=== PATIENT | male | born 1995 | race Native Hawaiian/Other Pacific Islander ===

== ENCOUNTER 2016-07-16 19:59 | Emergency (ER) | payer BC ==
[~2016-07-16] VITALS: Ht 185.4 cm; Wt 109.0 kg
[2016-07-16 20:03] VITALS: TEMP 37.3; Ht 185.4 cm; Wt 109.0 kg
[2016-07-16] MEDS ORDERED: STR/80 PO (20:49)
--- NOTE | 2016-07-16 21:07 | DIAGNOSTIC IMAGING REPORT ---
LUMBAR SPINE 5 VIEWS CLINICAL HISTORY: Low back pain. FINDINGS: 5 views of the lumbar spine are obtained. No prior studies are available for comparison at the time of dictation. The skeletal structures are well mineralized. There is no radiographic evidence of fracture or malalignment. Vertebral body height and alignment are maintained. The transverse and spinous processes are intact. There is no evidence of spondylolysis. The intervertebral disc spaces are well-maintained. The visualized bony pelvis appears intact. There is a nonobstructed abdominal bowel gas pattern. There is moderate colonic fecal retention. IMPRESSION: Unremarkable radiographic evaluation of the lumbosacral spine. Electronically signed by: Aubrey Bull M.D. 07/16/2016 9:05 PM Dictated Date/Time: 07/16/2016 9:04 PM
[2016-07-16] MEDS ORDERED: CETI10TA84 PO (21:13)
[2016-07-16] MEDS ORDERED: TRAM-10 PO (21:31)
[2016-07-16] MEDS ORDERED: CYCL10TA6 PO (21:31)
[2016-07-16 21:38] VITALS: BP 134/53; PULSE 75; O2SAT 98
[2016-07-16] MEDS ORDERED: FLEXERIL HOME PACK 10 MG VIAL PO ONE (21:45)
[2016-07-16] MEDS ORDERED: TRAMADOL HCL 50 MG HOME PACK PO ONE (21:45)
--- NOTE | 2016-07-17 01:43 | EMERGENCY ROOM VISIT NOTE ---
ED Visit Note First contact with patient: 20:09 Chief Complaint: Back pain. History of Present Illness: Mr. Galeas is a 20-year-old male who ambulates into the ED accompanied by a male friend complaining of left-sided lumbar back pain. Patient reports approximately one hour he was wrestling at [employer] in a club sport. He reports she had a bear hug-like trimmer climber on his opponent he was twisting with his upper body to bring the opponent to the mat. And felt a popping sensation in the left side of the lumbar back. He reports since that time his pain has been constant. He describes it as a sharp and throbbing sensation. It is nonradiating. He rates his discomfort 9/10 with movement. His pain worsens with all movements of the back. He has not identified any alleviating factors related to the pain. He has not taken any medications for pain prior to arrival at the hospital. He denies any associated symptoms including abdominal pain, nausea, vomiting, diarrhea, constipation, rectal bleeding, black /tarry stools, urinary symptoms, hematuria, rectal/genital paresthesias, bowel and bladder dysfunction, lower extremity weakness/numbness/tingling. Additionally he denies any previous significant injuries or surgeries. Review of Systems: As noted above in history of present illness. 8 body systems were reviewed and found to be negative as noted above. Past Medical History: Asthma, status post bariatric surgery. Current Medications: Strattera, Zyrtec. Allergies to Medications: Patient denies. 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 Physical Examination: Vital Signs: Date Time Temp Pulse Resp B/P Pulse Ox O2 Delivery O2 Flow Rate FiO2 07/16/16 21:38 75 16 134/53 98 Room Air 07/16/16 20:03 37.3 102 18 142/57 97 Room Air GENERAL: 20-year-old male in mild to moderate distress due to pain, nontoxic- appearing, afebrile and hemodynamically stable. NEUROLOGICAL: Awake, alert and oriented to person, place and time. Answering questions appropriately and following commands. Normal gait. Good hand eye coordination. No focal motor sensory deficits. SKIN: Warm, dry and pink. No soft tissue eruptions or trauma noted. HEENT: Atraumatic and normocephalic. BACK: No tenderness over the bony cervical, thoracic and lumbar spine. No step -offs, swelling or ecchymosis over the bony spine. Moderate tenderness approximately 4-5 cm left lateral to the L3-L4 area in the paraspinous muscles. Mild decreased range of motion in all movements due to pain. Negative straight leg raise test. No CVA tenderness. THORAX: Lungs sounds are clear to auscultation and equal bilaterally with symmetrical chest wall. ABDOMEN: Obese, soft and nontender. Positive bowel sounds in all quadrants. No guarding, rigidity or organomegaly. EXTREMITIES: Moves all extremities well on command and with purpose. All distal neurovascular statuses are intact and equal bilaterally. 5/5 muscle strength in hip flexion, extension, abduction and abduction, knee flexion and extension, ankle plantar flexion and dorsiflexion and flexion and extension of the great toes. 2+ patellar and Achilles deep tendon reflexes intact and equal bilaterally. He was able to distinguish light sensations through all dermatomes of the lower legs. ED Course: Patient is assessed as noted above. Lumbar Spine X-Rays: Were read by myself and the radiologist and there is no evidence of fracture or malalignment. Vertebral height and alignment are maintained. Radiologist did note moderate colonic fecal retention. The patient's request I did speak to his older sister who interpreted for his parents. They did request an MRI be performed at this time and I indicated he had no neurological deficits and that the MRI machine was reserved at this time for acute possible surgical emergencies. Patient was educated about tonight's findings and instructed on his treatment plan; he verbalized understanding and agreement with this plan. Clinical Impression: Acute left-sided lumbar back pain. Decision-Making: Initially my differential diagnosis I considered disc herniation, muscle strain, muscle spasm, bony fracture and other causes. Disposition: Patient discharged home in stable condition prior to arrival at the hospital; prior to departure he was reassessed and appeared to be feeling better but continued to rate his discomfort 9/10. Plan: Patient was prescribed Ultram 50 mg every 6 hours as needed for pain and encouraged to alternate with acetaminophen every 3 hours pain. Patient was prescribed Flexeril 10 mg every 8 hours as needed for/muscle spasm. Patient was encouraged use ice on areas of pain. Patient was encouraged to avoid wrestling until pain free. Patient was encouraged to follow-up at [facility] for recheck in 1-3 days and possible referral to specialist or MRI. Patient was encouraged return ED for worsening pain, numbness/tingling in the rectal or genital areas, difficulty controlling bowel and bladder functions, lower extremity weakness/numbness/tingling or any new/concerning symptoms.
== END 2016-07-16 21:42 | disposition home or self-care (01) ==
LOC: C.EDB 20:00 → C.EDD 21:42
DX: M54.5 Low back pain (principal); J45.909 Unspecified asthma, uncomplicated; Z98.84 Bariatric surgery status; Z79.899 Other long term (current) drug therapy